=== PATIENT | female | born 1955 | race Caucasian/White ===

== ENCOUNTER 2016-07-16 08:36 | Outpatient (CLI) | payer BC, OTHER | END 2016-07-16 23:59 | disposition home or self-care (01) | DX: E78.2 Mixed hyperlipidemia (principal) ==

== ENCOUNTER 2016-08-20 11:47 | Outpatient (CLI) | payer BC ==
--- NOTE | 2016-08-23 13:36 | Mammography Report ---
DIGITAL SCREENING MAMMOGRAM: 08/20/2016 CLINICAL INDICATION: A 61-year-old for screening. COMPARISON: 07/2014, 07/2013, 07/2011. TECHNIQUE: Routine CC and MLO projections were obtained of the breasts. FINDINGS: The breasts again demonstrate scattered fibroglandular densities bilaterally. Coarse, typ ically benign calcifications are present. No suspicious masses, clustered microcalcifications, or re gions of architectural distortion are identified. IMPRESSION: BENIGN FINDINGS. RECOMMENDATION: Routine annual screening unless otherwise clinically indicated. BIRADS CATEGORY 2 - BENIGN FINDINGS. STANDARD QUALIFYING STATEMENTS 1. This examination was reviewed with the aid of Computer-Aided Detection (CAD). 2. A negative or benign imaging report should not delay biopsy if clinically suspicious findings are present. Consider surgical consultation if warranted. More than 5% of cancers are not identified by i maging. 3. Dense breasts may obscure an underlying neoplasm. JOB #: [id number] EXT JOB #:[id number]
== END 2016-08-20 11:48 | disposition home or self-care (01) ==
LOC: DI 11:47
PROVIDERS: ATTEND Internal Medicine
DX: Z12.31 Encounter for screening mammogram for malignant neoplasm of breast (principal)
CPT/HCPCS: 77067

== ENCOUNTER 2017-08-05 09:24 | Outpatient (CLI) | payer BC ==
[2017-08-05 15:57] LABS: ALBUMIN 4.3 g/dL (3.2-5.5); ALBUMIN/GLOBULIN RATIO 1.4 (1.0-2.2); ALKALINE PHOSPHATASE 58 IU/L (42-121); ALT ALANINE AMINOTRANSFERASE 35 IU/L (10-60); AST ASPARTATE AMINOTRANSFERASE 25 IU/L (10-42); BILIRUBIN,TOTAL 0.8 mg/dL (0.2-1.0); BUN - BLOOD UREA NITROGEN 19 mg/dL (6-20); CALCIUM 9.3 mg/dL (8.5-10.3); CARBON DIOXIDE - CO2 26 mmol/L (21-32); CHLORIDE 102 mmol/L (101-111); CHOL/HDL RATIO 5.4 (<4.4); CHOLESTEROL 272 mg/dL; CREATININE 0.8 mg/dL (0.4-1.0); GFR - MDRD 73 (>89); GLUCOSE 102 mg/dL (70-100); HDL CHOLESTEROL 50 mg/dL; LDL CHOLESTEROL,CALCULATED 177 mg/dL; LDL/HDL RATIO 3.5 (<4.4); SODIUM 136 mmol/L (135-145); TOTAL PROTEIN 7.4 g/dL (6.7-8.2); VLDL CHOLESTEROL 45 mg/dL
== END 2017-08-05 09:25 | disposition home or self-care (01) ==
LOC: LAB.R 09:24
PROVIDERS: ATTEND Internal Medicine
DX: E78.5 Hyperlipidemia, unspecified (principal)
CPT/HCPCS: 80053; 80061; 83721

== ENCOUNTER 2017-09-02 09:06 | Outpatient (CLI) | payer BC ==
--- NOTE | 2017-09-05 18:14 | Mammography Report ---
Procedure Date: 09/02/2017 Accession Number: [id number] / [id number] Procedure: YVONNE - Screening Mammo Dig Bilat CPT Code: FULL RESULT: EXAM: Screening Mammo Dig Bilat DATE: 09/02/2017 9:31 AM CLINICAL HISTORY: Routine screening TECHNIQUE: Bilateral CC and MLO views were obtained. COMPARISON: August 20, 2016, 07/24/2014, 08/15/2013, 08/09/2011 FINDINGS: There are scattered fibroglandular densities. No significant interval change. No suspicious masses, clustered microcalcifications, or regions of architectural distortion are identified. IMPRESSION: Negative. RECOMMENDATION: Routine annual screening unless otherwise clinically indicated. BIRADS CATEGORY 1: Negative STANDARD QUALIFYING STATEMENTS: 1. This examination was reviewed with the aid of Computer-Aided Detection (CAD). 2. A negative or benign imaging report should not delay biopsy if clinically suspicious findings are present. Consider surgical consultation if warrented. More than 5% of cancers are not identified by imaging. 3. Dense breasts may obscure an underlying neoplasm.
== END 2017-09-02 09:07 | disposition home or self-care (01) ==
LOC: DI 09:06
PROVIDERS: ATTEND Internal Medicine
DX: Z12.31 Encounter for screening mammogram for malignant neoplasm of breast (principal)
CPT/HCPCS: 77067

== ENCOUNTER 2018-09-24 00:33 | Emergency (ER) | payer BC ==
[2018-09-24 01:12] LABS: BILIRUBIN,URINE NEGATIVE (NEGATIVE); GLUCOSE, URINE (UA) NEGATIVE (NEGATIVE); KETONES,URINE (UA) NEGATIVE (NEGATIVE); LEUKOCYTE ESTERASE, URINE NEGATIVE (NEGATIVE); NITRITE,URINE NEGATIVE (NEGATIVE); OCCULT BLOOD,URINE NEGATIVE (NEGATIVE); PH,URINE 5.5 PH (5.0-7.5); PROTEIN,URINE TRACE mg/dL (NEGATIVE); UROBILINOGEN,URINE 0.2 (NORMAL) E.U./dL (NORMAL)
[2018-09-24 01:17] LABS: CLARITY,URINE CLEAR (CLEAR)
[2018-09-24 01:42] LABS: BASOPHILS # (AUTO) 0.1 10^3/uL (0.0-0.1); BASOPHILS % (AUTO) 0.6 %; RED CELL DISTRIBUTION WIDTH 12.8 % (12.0-15.0)
[2018-09-24 01:47] LABS: EOSINOPHILS # (AUTO) 0.1 10^3/uL (0.0-0.7); EOSINOPHILS % (AUTO) 0.6 %; HGB - HEMOGLOBIN 15.5 g/dL (12.0-16.0); LYMPHOCYTES # (AUTO) 2.5 10^3/uL (1.5-3.5); LYMPHOCYTES % (AUTO) 19.2 %; MEAN CORPUSCULAR HEMOGLOBIN 29.1 pg (27.0-31.0); MEAN CORPUSCULAR HGB CONC 33.1 g/dL (32.0-36.0); MONOCYTES # (AUTO) 0.7 10^3/uL (0.0-1.0); MONOCYTES % (AUTO) 5.5 %; NEUTROPHILS # (AUTO) 9.7 10^3/uL (1.5-6.6); NEUTROPHILS % (AUTO) 73.8 %; PLT - PLATELET COUNT 179 10^3/uL (130-450); RED BLOOD COUNT 5.32 10^6/uL (4.20-5.40); WHITE BLOOD COUNT 13.2 x10^3/uL (4.8-10.8)
[2018-09-24 01:58] LABS: ALBUMIN 4.7 g/dL (3.2-5.5); ALBUMIN/GLOBULIN RATIO 1.5 (1.0-2.2); BILIRUBIN,TOTAL 0.9 mg/dL (0.2-1.0); CALCIUM 9.9 mg/dL (8.5-10.3); CREATININE 0.9 mg/dL (0.4-1.0); TOTAL PROTEIN 7.9 g/dL (6.7-8.2)
--- NOTE | 2018-09-24 02:34 | ED Physician Documentation ---
PD HPI ABD PAIN - Stated complaint Stated Complaint: AB PX - Chief complaint Chief Complaint: Abd Pain - History obtained from History obtained from: Patient - History of Present Illness Timing - onset: How many days ago (2 days) Timing - duration: Days Timing - details: Gradual onset, Intermittant, Waxing and waning Pain level now: 5 Quality: Pain Location: RUQ, Epigastric Radiation: Other (no radiation) Improved by: Other (nothing) Worsened by: Eating Associated symptoms: Nausea, Vomiting. No: Fever, Diarrhea, Constipation Similar symptoms before: Has not had sx before Recently seen: Not recently seen Review of Systems Constitutional: reports: Reviewed and negative Cardiac: reports: Reviewed and negative Respiratory: reports: Reviewed and negative GI: reports: Abdominal Pain, Nausea, Vomiting. 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 - Present Medications Home Medications: Ambulatory Orders Medication Instructions Recorded Confirmed Ketorolac [Toradol] 10 mg PO Q6H PRN #20 tablet 09/24/18 Ondansetron Odt [Zofran] 4 mg TL Q6H PRN #14 tablet 09/24/18 - Allergies Allergies/Adverse Reactions: Allergies Allergy/AdvReac Type Severity Reaction Status Date / Time pentazocine lactate * Allergy Intermediate Loss of Verified 09/24/18 00:41 [From Talwin] muscle control/Nausea Sulfa (Sulfonamide Allergy Mild Hives Verified 09/24/18 00:41 Antibiotics) - Social History Does the pt smoke?: No Smoking Status: Never smoker Does the pt drink ETOH?: No Does the pt have substance abuse?: No - Immunizations Immunizations are current?: Yes - POLST Patient has POLST: No PD ED PE NORMAL - Vitals Vital signs reviewed: Yes - General General: Alert and oriented X 3, No acute distress, Well developed/nourished - HEENT HEENT: Moist mucous membranes - Neck Neck: Supple, no meningeal sign - Cardiac Cardiac: RRR, No murmur, No gallop, No rub - Respiratory Respiratory: No respiratory distress, Clear bilaterally - Abdomen Abdomen: Soft, Non distended, Other (mild tenderness to palpation RUQ and epigastrium without rebound or guarding) - Back Back: No CVA TTP - Derm Derm: Normal color, Warm and dry, No rash - Extremities Extremities: No edema Results - Vitals Vitals: Vital Signs - 24 hr 09/24/18 09/24/18 09/24/18 02:41 02:55 03:15 Temperature Heart Rate 82 64 76 Respiratory 18 16 14 Rate Blood Pressure 188/89 H 184/86 H 176/85 H O2 Saturation 97 98 97 09/24/18 05:22 Temperature 36.5 C Heart Rate 69 Respiratory 14 Rate Blood Pressure 157/86 H O2 Saturation 97 Oxygen O2 Source Room air - Labs Labs: Laboratory Tests 09/24/18 09/24/18 09/24/18 01:10 01:35 01:35 WBC 13.2 H RBC 5.32 Hgb 15.5 Hct 46.8 MCV 88.0 MCH 29.1 MCHC 33.1 RDW 12.8 Plt Count 179 Neut # (Auto) 9.7 H Lymph # (Auto) 2.5 [place] # (Auto) 0.7 Eos # (Auto) 0.1 Baso # (Auto) 0.1 Absolute Nucleated RBC 0.00 Nucleated RBC % 0.0 Sodium 135 Potassium 3.9 Chloride 100 L Carbon Dioxide 24 Anion Gap 11.0 BUN 18 Creatinine 0.9 Estimated GFR (MDRD) 63 L Glucose 127 H Calcium 9.9 Total Bilirubin 0.9 AST 19 ALT 25 Alkaline Phosphatase 68 Total Protein 7.9 Albumin 4.7 Globulin 3.2 Albumin/Globulin Ratio 1.5 Lipase 43 Urine Color YELLOW Urine Clarity CLEAR Urine pH 5.5 Ur Specific [place] >=1.030 H Urine Protein TRACE Urine Glucose (UA) NEGATIVE Urine Ketones NEGATIVE Urine Occult Blood NEGATIVE Urine Nitrite NEGATIVE Urine Bilirubin NEGATIVE Urine Urobilinogen 0.2 (NORMAL) Ur Leukocyte Esterase NEGATIVE Ur Microscopic Review NOT INDICATED Urine Culture Comments NOT INDICATED - Rads (name of study) CT A/P Radiology: Prelim report reviewed, See rad report PD MEDICAL DECISION MAKING - ED course Complexity details: reviewed results, re-evaluated patient, considered differential, d/w patient Departure - Departure Disposition: 01 Home, Self Care Clinical Impression: Pancreatitis Condition: Good Health Concerns: abdominal pain Plan of Treatment: analgesic as prescribed, return if worse, follow up as scheduled with GI this week Care Goals: symptom control Assessment: see diagnosis Instructions: ED Abdominal Pain Unkn Cause Follow-Up: Ag Ellsworth MD [Primary Care Provider] - Prescriptions: Ketorolac [Toradol] 10 mg PO Q6H PRN #20 tablet PRN Reason: Pain Ondansetron Odt [Zofran] 4 mg TL Q6H PRN #14 tablet PRN Reason: Nausea / Vomiting Discharge Date/Time: 09/24/18 05:30
[2018-09-24] MEDS ORDERED: SODIUM CHLORIDE 0.9% 1,000 ML IV STA (02:47)
[2018-09-24] MEDS ORDERED: ONDANSETRON 4 MG/2 ML VIAL IVP STA (02:47)
[2018-09-24] MEDS ORDERED: KETOROLAC 15 MG/ML VIAL IVP STA ×2 (02:47→04:49)
[2018-09-24] MEDS ORDERED: IOVERSOL 320 100 ML VIAL IVP ONE ×2 (03:31→03:56)
--- NOTE | 2018-09-24 04:12 | CT Report ---
Reason: abd. pain Procedure Date: 09/24/2018 Accession Number: [id number] / [id number] Procedure: CT - Abdomen/Pelvis W CPT Code: FULL RESULT: EXAM: CT ABDOMEN AND PELVIS EXAM DATE: 09/24/2018 03:53 AM. CLINICAL HISTORY: Abdominal pain. COMPARISONS: ABDOMEN/PELVIS W/ 11/17/2013 12:43 PM. TECHNIQUE: Routine helical CT imaging was performed through the abdomen and pelvis. IV contrast: Yes . Enteric contrast: No . Reconstructions: Coronal and sagittal. In accordance with CT protocol optimization, one or more of the following dose reduction techniques were utilized for this exam: automated exposure control, adjustment of mA and/or KV based on patient size, or use of iterative reconstructive technique. FINDINGS: Lung Bases: Unremarkable. Liver: Fatty. No suspicious masses. Gallbladder/Bile Ducts: Unremarkable post cholecystectomy. Spleen: Unremarkable. Pancreas: Mild pancreatic head edema. No mass or ductal dilatation. No peripancreatic collection. Adrenal Glands: Unremarkable. Kidneys: Unremarkable. No suspicious masses or hydronephrosis. Peritoneal Cavity/Bowel: No bowel obstruction or inflammatory process seen. No free air or significant free fluid. Incidental tiny duodenal lipoma. No worrisome masses or adenopathy. The appendix is normal. No excessive stool burden. Colonic diverticulosis. Pelvic Organs: Bladder, uterus, and adnexa are unremarkable. Vasculature: No aneurysms or other significant abnormality. Bones: No significant abnormality. Other: None. IMPRESSION: 1. Very mild pancreatitis without apparent complication. 2. Quite fatty liver. 3. Colonic diverticulosis. 4. Post cholecystectomy. RADIA
[2018-09-24 05:23] VITALS: BP 157/86
== END 2018-09-24 05:30 | disposition home or self-care (01) ==
LOC: ED 00:33
DX: K85.90 Acute pancreatitis without necrosis or infection, unspecified (principal); I10 Essential (primary) hypertension; E78.00 Pure hypercholesterolemia, unspecified
CPT/HCPCS: 36415; 74177; 80053; 81003; 83690; 85025; 96361; 96374; 96375; 96376; 99283; 99285; Q9967; 81001; 87086

== ENCOUNTER 2019-03-05 13:27 | Outpatient (CLI) | payer BC ==
--- NOTE | 2019-03-05 14:33 | Mammography Report ---
Reason: RT BREAST LUMP Procedure Date: 03/05/2019 Accession Number: [id number] / [id number] Procedure: YVONNE - Diagnostic Dig Bilat CPT Code: Final Report FULL RESULT: EXAM: Diagnostic Dig Bilat, Breast Unilateral Limited DATE: 03/05/2019 2:04 PM CLINICAL HISTORY: Right upper outer quadrant to the palpable lump. COMPARISON: 09/02/2017, 08/20/2016, 07/24/2014, 08/15/2013 MAMMOGRAM: TECHNIQUE: (B) - Bilateral CC and MLO views were obtained. PARENCHYMAL PATTERN: (A) - The breasts demonstrate scattered fibroglandular densities bilaterally. FINDINGS: No mammographic abnormality is seen in the area of the clinical finding 2:00 position right breast. There are no suspicious masses, calcifications, or areas of distortion in either breast. RIGHT BREAST ULTRASOUND: TECHNIQUE: Real time scanning by the customer facilities supervisor with saved static images reviewed. FINDINGS: The right upper inner quadrant is scanned. There is no cystic or solid mass or abnormal fluid collection. The palpable finding represents breast tissue superimposed on a rib. IMPRESSION: Negative examination. BI-RADS category 1. RECOMMENDATION: (ANNUAL) - Recommend routine annual screening mammography. BI-RADS CATEGORY: (1) - Negative. STANDARD QUALIFYING STATEMENTS: 1. This examination was not reviewed with the aid of Computer-Aided Detection (CAD). 2. A negative or benign imaging report should not preclude biopsy if clinically suspicious findings are present. 3. Dense breasts may obscure an underlying neoplasm. 4. This examination was reviewed with the aid of 3D breast imaging (tomosynthesis).
== END 2019-03-05 13:28 | disposition home or self-care (01) ==
LOC: DI 13:27
PROVIDERS: ATTEND Family Medicine
DX: N63.15 Unspecified lump in the right breast, overlapping quadrants (principal); Z80.3 Family history of malignant neoplasm of breast
CPT/HCPCS: 76642; 77066

== ENCOUNTER 2019-05-17 07:20 | Outpatient (CLI) | payer BC ==
[2019-05-17] MEDS ORDERED: GADOBUTROL 7.5 MMOL/7.5 ML VIAL ONE (07:28)
[2019-05-17] MEDS ORDERED: GADOBUTROL 7.5 MMOL/7.5 ML VIAL IVP ONE (08:00)
--- NOTE | 2019-05-21 17:06 | MRI Report ---
Reason: BREAST LUMP Procedure Date: 05/17/2019 Accession Number: [id number] / [id number] Procedure: MRI - Breast W/WO Cont CPT Code: 00969 Final Report FULL RESULT: EXAM: Breast W/WO Cont DATE: 05/17/2019 8:25 AM CLINICAL HISTORY: BREAST LUMP palpable right breast lump with negative sonographic and mammographic workup but persistent clinical concern. COMPARISON: None. TECHNIQUE: Multiphase isotropic postcontrast sequential high resolution imaging, steady-state free precession. Nonfat saturated T1 imaging, STIR imaging, diffusion weighted imaging. CONTRAST USED: 7.5 mL Gadavist. POSTPROCESSING: Subtraction dynamic/curve analysis and multiplanar reformations with CAD stream FINDINGS: The breasts demonstrate a scattered amount of fibroglandular tissue bilaterally. Both breasts demonstrate minimal background parenchymal enhancement. Chest: Thoracic structures are grossly unremarkable including visualized mediastinum and lungs. Right breast: There is no suspicious focus of enhancement. There is no suspicious mass. There is no lymphadenopathy by size or morphology criteria. There is no suspicious nonmass enhancement. Left breast: There is no suspicious focus of enhancement. There is no suspicious mass. There is no lymphadenopathy by size or morphology criteria. There is no suspicious nonmass enhancement. IMPRESSION: Negative examination. BI-RADS 1. Recommendation: Continued annual screening mammography and clinical correlation. COMMENT: The literature indicates that a negative dynamic breast MRI has a high sensitivity and specificity for the detection of invasive carcinoma (to a threshold of 5 mm). MRI is not reliably sensitive for detecting ductal carcinoma in situ or large invasive neoplasms with only minimal enhancement (i.e. mucinous carcinoma). Normal-appearing lymph nodes on MRI may contain microscopic tumor. Appropriate clinical mammographic and sonographic followup should be performed if recommended. Negative MRI should not dissuade further evaluation of any suspicious mammographic calcifications and/or worrisome palpable masses.
== END 2019-05-17 07:21 | disposition home or self-care (01) ==
LOC: DI 07:20
PROVIDERS: ATTEND Surgery
DX: N63.10 Unspecified lump in the right breast, unspecified quadrant (principal)
CPT/HCPCS: 77049; A9585

== ENCOUNTER 2019-06-05 13:23 | Outpatient (CLI) | payer BC ==
--- NOTE | 2019-06-05 16:44 | SLEEP CARE CONSULTATION ---
Information from patient questionnaire entered by Laly Anaya. I have reviewed and concur with the information entered by Laly Anaya. This document represents the service I personally performed and the decisions made by me, Karyna Carney MD, [facility]. History of Present Illness Reason for Visit: New patient Chief Complaint: reports: Insomnia, Unrefreshed sleep, Snoring, Observed pauses in breathing, Frequent awakenings at night Duration of Symptoms: years with snoring and insomnia Usual bedtime: 11pm-12am Time it takes to fall asleep: 30 minutes Snores at night: Yes Observed to quit breathing while asleep: Yes Sleeps alone due to snoring: No Number of times waking at night: 2-3 Reasons for waking at night: reports: Snoring, Pain, Bathroom Toss, Turn, or Twitch while sleeping: Yes Recalls having dreams: Yes (sometimes) Usually gets out of bed at: 7:45am Feels refreshed in the morning: No Morning headache: No Sleepy or fatigued during the day: Yes (after 3pm) Ever fallen asleep while driving: No Takes day naps: Yes (rarely) Dreams during day naps: No Prior sleep studies: Yes Additional HPI information: I had the pleasure of seeing Ms. Estrada today regarding the possibility of her having a sleep disorder. As you know, she is a 64 year old lady who complains of insomnia, sleep study, observed apneas, unrefreshed sleep, unrefreshed sleep, persistent fatigue, and excessive daytime sleepiness. The patient tells me that she normally goes to bed around midnight, and it takes her approximately 30 minutes to fall asleep. She has been told that she snores loudly and irregularly at night. She has also been observed to stop breathing in her sleep. Her bed partner can still sleep in the same bed. He has obstructive sleep apnea-hypopnea and uses a CPAP. She can recall waking up on the average of 2 - 3 times during the night. Most of the time she wakes up because of having to use the bathroom. She has awakened occasionally because of her own snoring, choking, and having to gasp for air. There is not a lot of tossing and turning in her sleep. She has somniloquy (sleep talking) but not somnambulism (sleep walking). Generally she can recall having dreams. In the morning she usually gets up out of the bed around 7:45 a.m. not feeling refreshed nor rested. She occasionally has a morning headache. During the day she complains of feeling sleepy and fatigued. Her score on Barnes Sleepiness Scale is 12 out of 24. She has never fallen asleep while driving nor has had any accident due to sleepiness. She usually does not take naps during the day. She reports having impaired concentration during the day. - Parasomnia Symptoms Ever been unable to move upon waking from sleep: Yes Ever felt weak in the knees when startled or emotional: Yes Bothered by creepy, crawly, restless sensations in legs: No Problems with memory or concentration: Yes (sometimes) Subjective Initial Barnes Sleepiness Scale score: 12 Past Medical History Past Medical History: reports: Claustrophobia (a bit), Arthritis Social History The patient's occupation is a [employer]. - [employer]. Patient is Single and lives in [place]. Have you smoked in the past 12 months: No Years of smokin Quit date: 1982 Alcohol use: No Alcohol amount and frequency: use to a little Caffeine use: Yes Caffeine amount and frequency: 2-3 cups a day Family History Family history of sleep disordered breathing: Yes Family Hx Sleep Apnea: Sibling: Sleep apnea - Treated Allergies and Home Medications Drug allergies reviewed: Yes (Talwin & Sulfa) Home medication list reviewed: Yes (acetaminophen, ibuprofen, Multivitamin once a day, turmeric capsule) Review of Systems Weight gain over past 5 years: 30 Weight loss over past 5 years: 30 Cardiovascular: reports: high blood pressure (with stress once in a while) Respiratory: denies: shortness of breath, wheeze, sputum production, chronic cough, other Gastrointestinal: reports: heartburn, nausea, diarrhea, abdominal pain Urinary: reports: frequency Neurological: reports: headaches Psychiatric: reports: claustrophobia (small amount) Ear/Nose/Throat: reports: wisdom teeth removed Endocrine: reports: too hot or cold Musculoskeletal: reports: joint pain, neck pain, back pain, joint swelling, muscle pain or cramping, other Immunologic: denies: sneezing, rash, itching, allergies to food or environment, other Physical Exam Vital signs obtained and entered by: Physical exam is deferred due to the COVID- 19 pandemic. Height: 5 ft 3 in Impression and Plan IMPRESSION: 1. Obstructive Sleep Apnea-Hypopnea Syndrome, as suggested by history of loud and irregular snoring, observed cessation of breath while asleep, frequent awakenings, nocturnal choking, unrefreshed sleep, occasional morning headache, cognitive impairment, and daytime hypersomnolence. Narrow oropharynx and obesity are common predisposing factors for obstructive sleep apnea-hypopnea syndrome. Pathophysiology of sleep-disordered breathing was discussed. I recommend proceeding to polysomnography to confirm the diagnosis and to assess severity. If she has significant sleep disordered breathing, a manual CPAP titration study will also be performed to find the optimal treatment pressure. I informed the patient of what the sleep studies involve and after some discussion, she agreed to proceed. Plan: 1. Schedule an in-laboratory polysomnography or a home sleep apnea test (HSAT). 2. Avoid long distance driving or when feeling sleepy. 3. Avoid alcohol, sedative and muscle relaxant around bedtime. 4. Attempt to lose weight. 5. Return in 1 to 2 weeks after the study to discuss results and initiate therapy. I spent 100% of this visit face to face with the patient with greater than 50% of this was spent time counseling the patient and coordination of care.
== END 2019-06-05 13:24 | disposition home or self-care (01) ==
LOC: SC 13:23
PROVIDERS: ATTEND Internal Medicine Pulmonary Disease
DX: G47.10 Hypersomnia, unspecified (principal); R06.81 Apnea, not elsewhere classified; G47.8 Other sleep disorders; R06.83 Snoring; R51 Headache; R41.89 Other symptoms and signs involving cognitive functions and awareness
CPT/HCPCS: 99203; 99212

== ENCOUNTER 2019-06-20 19:30 | Outpatient (CLI) | payer BC | END 2019-06-20 23:59 | disposition home or self-care (01) | LOC: SC 19:30 | PROVIDERS: ATTEND Internal Medicine Pulmonary Disease | DX: G47.33 Obstructive sleep apnea (adult) (pediatric) (principal); E66.3 Overweight | CPT/HCPCS: 95806 ==

== ENCOUNTER 2019-07-05 10:24 | Outpatient (CLI) | payer BC ==
[2019-07-05 10:46] LABS: BILIRUBIN,URINE NEGATIVE (NEGATIVE); GLUCOSE, URINE (UA) NEGATIVE (NEGATIVE); KETONES,URINE (UA) NEGATIVE (NEGATIVE); LEUKOCYTE ESTERASE, URINE NEGATIVE (NEGATIVE); NITRITE,URINE NEGATIVE (NEGATIVE); OCCULT BLOOD,URINE NEGATIVE (NEGATIVE); PH,URINE 5.5 PH (5.0-7.5); PROTEIN,URINE NEGATIVE (NEGATIVE); UROBILINOGEN,URINE 0.2 (NORMAL) E.U./dL (NORMAL)
[2019-07-05 11:03] LABS: CLARITY,URINE CLEAR (CLEAR)
[2019-07-05 11:14] LABS: BACTERIA,URINE Rare /HPF (None Seen); RBC,URINE 0-5 /HPF (0-5); SQUAMOUS EPITHELIAL CELL,UR RARE Squamous (<= Few)
== END 2019-07-05 10:25 | disposition home or self-care (01) ==
LOC: LAB 10:24
PROVIDERS: ATTEND Registered Nurse
DX: R10.9 Unspecified abdominal pain (principal)
CPT/HCPCS: 81001; 87086

== ENCOUNTER 2019-07-10 16:57 | Outpatient (CLI) | payer BC ==
--- NOTE | 2019-07-10 10:31 | SLEEP CARE CONSULTATION ---
Information from patient questionnaire entered by Linda Perkins. I have reviewed and concur with the information entered by Linda Perkins. This document represents the service I personally performed and the decisions made by me, Karyna Carney MD, [facility]. History of Present Illness Service Date and Time: 07/10/2019 1000 Initial Friendly Sleepiness Scale score: 12 Additional HPI information: To minimize the risk of COVID-19 exposure, the patient has requested and consented to this video telemedicine visit. The patient also agrees to having her insurance billed. HPI: Ms. Estrada was called for follow up of the sleep study she had on 06/20/2019. The polysomnography showed that moderate obstructive sleep apnea- hypopnea with an AHI of 21.0 and [place] oxygen saturation of 77%. The respiratory events occurred almost exclusively during supine sleep. The patient was informed of these findings. I explained to her the pathophysiology behind obstructive sleep apnea. We then spent quite a bit of time discussing different treatment options. For mild obstructive sleep apnea, surgery and oral appliance are alternatives to nasal CPAP therapy but in moderate or severe cases, nasal CPAP is the most effective and reliable treatment. After some discussion, she opted to go with the nasal CPAP therapy. I explained to her how CPAP machine works and what to expect when using the machine. She is encouraged to use CPAP every night especially in the first 2 to 3 nights in order to get used to it. She should call me or her CPAP supplier to discuss any mechanical problem that may occur. If she snores while wearing the CPAP or feels like she needs more air from the machine, she should notify me and I will increase the pressure. Allergies and Home Medications Drug allergies reviewed: Yes Home medication list reviewed: Yes Review of Systems Review of systems same as previous: Yes Physical Exam Height: 5 ft 3 in Impression and Plan IMPRESSION: 1. Obstructive Sleep Apnea-Hypopnea Syndrome, moderate, associated with moderate hypoxemia. Most likely, this is the cause of the patients symptoms of unrefreshed sleep, and excessive daytime sleepiness. The patient also recently had a transient ischemic attack which makes the treatment more necessary. As mentioned above, the patient will be started on autoCPAP set at 4 - 12 cmH2O. Depending on her response and compliance she may be brought back for an overnight CPAP titration study (No sleep studies are being conducted at this time because of COVID-19). PLAN: 1. Prescription made for an autoCPAP with heated humidifier and related supplies. 2. Attempt to lose weight. 3. Be careful when driving until her sleepiness resolves completely on nasal CPAP therapy. 4. Return in one month for follow up. I will assess her response and compliance at that time. Visit Type: Telehealth Video Video Type: Panono Patient Location: Home Location of Provider: Home Patient agrees and consents to this telehealth visit type: Yes Time Spent with Patient (minutes): 15 Provider Statement: I spent 100% of the Telehealth Video Call with the patient with greater than 50% spent counseling the patient and coordination of care.
== END 2019-07-10 16:58 | disposition home or self-care (01) ==
LOC: SC 16:57
PROVIDERS: ATTEND Internal Medicine Pulmonary Disease
DX: G47.33 Obstructive sleep apnea (adult) (pediatric) (principal)

== ENCOUNTER 2019-09-27 11:05 | Outpatient (CLI) | payer BC ==
[2019-09-27 12:22] VITALS: BP 140/80
--- NOTE | 2019-09-27 12:22 | SLEEP CARE CONSULTATION ---
Information from patient questionnaire entered by Linda Perkins. I have reviewed and concur with the information entered by Linda Perkins. This document represents the service I personally performed and the decisions made by me, Mckenzie Espinosa, RN, MSN, DIE OPERATOR. History of Present Illness Service Date and Time: 09/27/2019 1105 Previous diagnosis: Moderate, Obstructive Sleep Apnea-Hypopnea Syndrome AHI: 21 Reason for follow up: first compliance Equipment type: CPAP Equipment obtained from: [employer] (getting supplies as needed - not happy with mask , others sent but still not fitting.) Mask style: Full face (both resmed F30 and Dreamwear plus Wisp- no chinstrap) Backup mask available: Yes Last cushion change: 3 days ago - no difference [facility] Type of Sleep Study: Home sleep study CPAP Compliance Data - Data Reviewed with Patient Average duration of nightly device use: 6h 21m Compliance rate %: 90 Current pressure setting (cmH2O): 4-12 Humidity settin Heated hose settin Average residual AHI: 7 (90% pressure 7.9cmH20 ) Central apnea: 0.7 Obstructive apnea: 1.2 Hypopnea: 5.1 Average large leak: 40m 6s Subjective Patient concerns: reports: mask discomfort (from overtightening mask), air blowing in eyes, mask leak noise (mask farts), condensation in mask/hose (occasional in mask - air feels too cold), dry mouth, nose, throat (severe with wisp mask / mild most nights. ), other (having mask leaks with all styles of masks given. She reports she has a small skull and current headgears too large. Cushion also too large and slides around even with adjustment. ). denies: aerophagia, epistaxis Observed to snore while using device: Yes Current pressure setting perceived as: comfortable On therapy, patient: denies: sleeping better, awakening more refreshed, being mo re awake and alert during the day, more rested overall (no change is sleepiness symptoms as wakes to mask frequently during the night), drowsiness while driving Initial [place] Sleepiness Scale score: 12 Current [place] Sleepiness Scale score: 5 Allergies and Home Medications Known drug allergies: Yes (see list ) Home medication list reviewed: No (see ROS additions) Review of Systems Review of systems same as previous: No (TIA 06/14/19 Plavix 1 month, started amlidipine, rovastatin) Physical Exam Blood Pressure: 140/80 (monitors at home - guidelines by PCP for follow up on higher readings) Cuff size: long Heart Rate: 70 O2 Saturation: 98 Height: 5 ft 3 in Weight: 176 lb 9.6 oz Body Mass Index: 31.2 BMI Classification: Obese Impression and Plan 1. Obstructive Sleep Apnea-Hypopnea Syndrome,moderate , with good treatment compliance and good apnea control. On CPAP therapy, the patient has not noted any change as she is waking to mask leaks frequently during the night. She brought in her masks to show her concerns with each mask. A mask refitting was ordered to find a smaller mask headgear and cushion that comfortably fits so to reduce mask leaks into patient eyes. Until then, she is advised to use an eye cover to protect eyes. She can also use eye lubricating drops prior to CPAP use until leaks resolved. I also advised a folder wash cloth under mask at top of head to help fit better as mask body seems too large and cannot be adjusted. Oral dryness can be reduced by adjusting humidity setting higher or heated hose lower or by adjusting both settings.In her case, she is advised to increase heated hose due to coolness of air and condensation and adjust further as needed both settings as discussed. Oral dryness can also be reduced by reducing mask leaks. Patient advised that chronic oral dryness can affect dental health and advised to follow up with dentist. In addition, there are oral dryness products that can be used to reduce dryness. Patient to discuss best option with dentist.The patients pressure will be changed to autoCPAP 8-14 cmH20 For elevation of residual AHI. Patient advised how to use the ramp feature to reduce pressure at initiation of treatment. She is to contact me if pressure change is uncomfortable so that it can be adjusted. Goals for apnea control discussed. Patient's apnea severity and rationale for treatment to reduce apnea, improve sleep quality and reduce cardiovascular and cerebrovascular events was reviewed. I also reviewed the benefit of consistent device use of CPAP for hypertension, cerebrovascular disease. * * Change auto CPAP pressure to 8-14 cmH2O * Mask refitting. * Implement methods to reduce condensation and oral dryness * Notify me if snoring with mask or feeling that the pressure is too much or too little * Attempt to lose weight * Call this office if any problems using CPAP * Return for follow up in 1-2 months , or sooner if concerns arise Visit Type: In Office Time Spent with Patient (minutes): 42 Provider Statement: I spent 100% of the Face to Face Visit with the patient with greater than 50% spent counseling the patient and coordination of care.
== END 2019-09-27 11:06 | disposition home or self-care (01) ==
LOC: SC 11:05
PROVIDERS: ATTEND Nurse Practitioner Family
DX: G47.33 Obstructive sleep apnea (adult) (pediatric) (principal); E66.9 Obesity, unspecified; Z68.31 Body mass index [BMI] 31.0-31.9, adult
CPT/HCPCS: 99212; 99215

== ENCOUNTER 2019-11-15 09:50 | Day surgery (SDC) | payer BC ==
[2019-11-15] MEDS ORDERED: LACTATED RINGERS 1,000 ML IV ONE ×2 (09:54→11:56)
[2019-11-15] MEDS ORDERED: fentaNYL 250 MCG/5 ML VIAL IVP ONE (11:19)
[2019-11-15] MEDS ORDERED: MIDAZOLAM 2 MG/2 ML VIAL IVP ONE (11:19)
[2019-11-15 12:24] VITALS: BP 136/74
== END 2019-11-15 09:51 | disposition home or self-care (01) ==
LOC: SDS 09:50
PROVIDERS: ATTEND Surgery
PROC: 0DBK8ZZ Excision of Ascending Colon, Via Natural or Artificial Opening Endoscopic (ICD-10-PCS; principal; 2019-11-15 11:00)
DX: Z12.11 Encounter for screening for malignant neoplasm of colon (principal); D12.2 Benign neoplasm of ascending colon; K64.8 Other hemorrhoids; K57.30 Diverticulosis of large intestine without perforation or abscess without bleeding; I10 Essential (primary) hypertension; G47.30 Sleep apnea, unspecified; Z79.899 Other long term (current) drug therapy; Z79.82 Long term (current) use of aspirin; Z87.891 Personal history of nicotine dependence; Z86.73 Personal history of transient ischemic attack (TIA), and cerebral infarction without residual deficits
CPT/HCPCS: 45385; J3010; J7120

== ENCOUNTER 2020-01-11 08:20 | Outpatient (CLI) | payer BC ==
[2020-01-11 15:44] LABS: BASOPHILS # (AUTO) 0.1 10^3/uL (0.0-0.1); BASOPHILS % (AUTO) 1.5 %; EOSINOPHILS # (AUTO) 0.3 10^3/uL (0.0-0.7); EOSINOPHILS % (AUTO) 3.7 %; HGB - HEMOGLOBIN 14.2 g/dL (12.0-16.0); LYMPHOCYTES # (AUTO) 2.5 10^3/uL (1.5-3.5); MEAN CORPUSCULAR HEMOGLOBIN 29.6 pg (27.0-31.0); MEAN CORPUSCULAR HGB CONC 32.2 g/dL (32.0-36.0); MEAN CORPUSCULAR VOLUME 92.1 fL (81.0-99.0); MEAN PLATELET VOLUME 13.8 fL (7.9-10.8); MONOCYTES # (AUTO) 0.5 10^3/uL (0.0-1.0); MONOCYTES % (AUTO) 7.6 %; NEUTROPHILS # (AUTO) 3.3 10^3/uL (1.5-6.6); NEUTROPHILS % (AUTO) 48.9 %; PLT - PLATELET COUNT 181 10^3/uL (130-450); RED BLOOD COUNT 4.79 10^6/uL (4.20-5.40); RED CELL DISTRIBUTION WIDTH 12.5 % (12.0-15.0); WHITE BLOOD COUNT 6.7 x10^3/uL (4.8-10.8)
[2020-01-11 16:01] LABS: ALBUMIN 4.3 g/dL (3.2-5.5); ALBUMIN/GLOBULIN RATIO 1.6 (1.0-2.2); ALKALINE PHOSPHATASE 55 IU/L (42-121); ALT ALANINE AMINOTRANSFERASE 17 IU/L (10-60); AST ASPARTATE AMINOTRANSFERASE 16 IU/L (10-42); BILIRUBIN,TOTAL 0.7 mg/dL (0.2-1.0); BUN - BLOOD UREA NITROGEN 16 mg/dL (6-20); CARBON DIOXIDE - CO2 27 mmol/L (21-32); CHLORIDE 106 mmol/L (101-111); CHOL/HDL RATIO 2.7 (<4.4); CHOLESTEROL 164 mg/dL; CREATININE 0.7 mg/dL (0.4-1.0); GLUCOSE 105 mg/dL (70-100); HDL CHOLESTEROL 61 mg/dL; LDL CHOLESTEROL,CALCULATED 89 mg/dL; LDL/HDL RATIO 1.5 (<4.4); SODIUM 139 mmol/L (135-145); VLDL CHOLESTEROL 14 mg/dL
== END 2020-01-11 08:21 | disposition home or self-care (01) ==
LOC: LAB.S 08:20
PROVIDERS: ATTEND Family Medicine
DX: E78.5 Hyperlipidemia, unspecified (principal); I10 Essential (primary) hypertension; G45.9 Transient cerebral ischemic attack, unspecified; G47.30 Sleep apnea, unspecified
CPT/HCPCS: 36415; 80053; 80061; 83721; 84443; 85025

== ENCOUNTER 2020-01-22 08:00 | Outpatient (CLI) | payer BC | END 2020-01-22 23:59 | disposition home or self-care (01) | LOC: LAB.R 08:00 | PROVIDERS: ATTEND Registered Nurse | DX: R53.83 Other fatigue (principal); Z20.828 Contact with and (suspected) exposure to other viral communicable diseases; I10 Essential (primary) hypertension; G45.9 Transient cerebral ischemic attack, unspecified; G47.30 Sleep apnea, unspecified; R23.8 Other skin changes | CPT/HCPCS: 36415; 85379; 85610; 87275; 87276 ==

== ENCOUNTER 2020-01-22 13:53 | Outpatient (CLI) | payer BC ==
[2020-01-22 20:06] LABS: PT - PROTHROMBIN TIME 11.6 secs (9.9-12.6)
== END 2020-01-22 13:54 | disposition home or self-care (01) ==
LOC: LAB.S 13:53
PROVIDERS: ATTEND Registered Nurse
DX: R53.83 Other fatigue (principal); R23.8 Other skin changes; I10 Essential (primary) hypertension; G45.9 Transient cerebral ischemic attack, unspecified; G47.30 Sleep apnea, unspecified
CPT/HCPCS: 36415; 85379; 85610; 87275; 87276

== ENCOUNTER 2020-02-25 12:08 | Outpatient (CLI) | payer BC ==
--- NOTE | 2020-02-25 12:38 | SLEEP CARE CONSULTATION ---
Information from patient questionnaire entered by Laly Anaya. I have reviewed and concur with the information entered by Laly Anaya. This document represents the service I personally performed and the decisions made by me, Karyna Carney MD, [facility]. History of Present Illness Service Date and Time: 02/25/2020 1208 Previous diagnosis: Moderate, Obstructive Sleep Apnea-Hypopnea Syndrome AHI: 21 (in 2019) Reason for follow up: three month (with pressure change) Equipment type: CPAP Equipment obtained from: [employer] Mask style: Nasal Prior sleep studies: Yes Year and Where: 2019 - [facility] Type of Sleep Study: Polysomnography HPI additional information: HPI: Ms. Mcmanus returned today for annual follow up of nasal CPAP therapy. She was diagnosed to have moderate obstructive sleep apnea-hypopnea syndrome. The patient gets her supplies from [employer]. She wears a nasal mask. She continues to use the device nightly and all through the night. The compliance report shows usage in 29 nights out of the past 30 nights, averaging 7 hours a night. The > 4 hour compliance rate for the past 365 days is 80%. She complained of aerophagia. She thinks that the pressure of 8 - 10 cmH2O is still a little too high and has to occasionally ramp it (lowered from 8 15 cmH2O in November). On the CPAP therapy she notices improvement in her sleep quality, and that she wakes up feeling fresher in the morning and more awake/alert during the day. Her notices no snore at all. The average residual AHI is 4.1: and average time in large leak per day is 2 minutes. CPAP Compliance Data - Data Reviewed with Patient Average duration of nightly device use: 7 hr Compliance rate %: 86.7 (90 days) Current pressure setting (cmH2O): 8-10 Humidity settin Heated hose settin Average residual AHI: 4.5 Average large leak: 3 min 6 sec Subjective Initial [place] Sleepiness Scale score: 12 (in 2019) Allergies and Home Medications Drug allergies reviewed: Yes Home medication list reviewed: Yes Review of Systems Review of systems same as previous: Yes Physical Exam Height: 5 ft 2 in Impression and Plan IMPRESSION: 1. Obstructive Sleep Apnea-Hypopnea Syndrome, moderate, with the patient continuing to do well on nasal CPAP therapy. She has excellent compliance and significant clinical improvement. The current pressure appears effective but still not too comfortable. Overall, she is very satisfied with treatment and plans to continue with it long-term. I will lower the pressure range further and recheck the residual AHI in one month. PLAN: 1. autoCPAP lowered to 5 - 8 cm H2O via the modem. 2. Return in one month for follow up. Visit Type: Telehealth Video Video Type: Doximity Patient Location: Home Location of Provider: Office Patient agrees and consents to this telehealth visit type: Yes Patient agrees to have their insurance billed: Yes Time Spent with Patient (minutes): 12 Provider Statement: I spent 100% of the Telehealth Video Call with the patient with greater than 50% spent counseling the patient and coordination of care.
== END 2020-02-25 12:09 | disposition home or self-care (01) ==
LOC: SC 12:08
PROVIDERS: ATTEND Internal Medicine Pulmonary Disease
DX: G47.33 Obstructive sleep apnea (adult) (pediatric) (principal)

== ENCOUNTER 2020-03-24 11:34 | Outpatient (CLI) | payer BC ==
--- NOTE | 2020-03-24 11:42 | SLEEP CARE CONSULTATION ---
Information from patient questionnaire entered by Laly Anaya. I have reviewed and concur with the information entered by Laly Anaya. This document represents the service I personally performed and the decisions made by me, Karyna Carney MD, [facility]. History of Present Illness Service Date and Time: 03/24/2020 1134 Previous diagnosis: Moderate, Obstructive Sleep Apnea-Hypopnea Syndrome AHI: 21 (in 2019) Reason for follow up: one month (with pressure change) Equipment type: CPAP Equipment obtained from: [employer] Mask style: Nasal Prior sleep studies: Yes Year and Where: 2019 - [facility] Type of Sleep Study: Polysomnography HPI additional information: To minimize the risk of COVID-19 exposure, the patient has requested and consented to this telephone visit. The patient also agrees to having her insurance billed. HPI: Ms. Mcmanus was called today for follow up of nasal CPAP therapy after the pressure setting was lowered last month for comfort. She was diagnosed to have moderate obstructive sleep apnea-hypopnea syndrome. The patient gets her supplies from [employer]. She wears a nasal mask. She continues to use the device nightly and all through the night. The compliance report shows usage in 29 nights out of the past 30 nights, averaging 8.3 hours a night. The > 4 hour compliance rate for the past 30 days is 96.7%. She complained of aerophagia. She thinks that the pressure of 5 - 8 cmH2O is comfortable (lowered from 8 15 cmH2O in November). On the CPAP therapy she notices improvement in her sleep quality, and that she wakes up feeling fresher in the morning and more awake/alert during the day. Her boyfriend notices no snore at all. The average residual AHI is 6.4 (was 4.1); and average time in large leak per day is 2 minutes. CPAP Compliance Data - Data Reviewed with Patient Average duration of nightly device use: 8 hr 17 min Compliance rate %: 96.7 Current pressure setting (cmH2O): 5-8 Humidity settin Heated hose settin Average residual AHI: 6.4 Average large leak: 1 min 46 sec Subjective Initial [place] Sleepiness Scale score: 12 (in 2019) Allergies and Home Medications Drug allergies reviewed: Yes Home medication list reviewed: Yes Review of Systems Review of systems same as previous: Yes Physical Exam Height: 5 ft 2 in Impression and Plan IMPRESSION: 1. Obstructive Sleep Apnea-Hypopnea Syndrome, moderate, with the patient continuing to do well on nasal CPAP therapy. She has excellent compliance and significant clinical improvement. The current pressure now appears slightly ineffective but comfortable. Overall, she is very satisfied with treatment and plans to continue with it long-term. I will raise the pressure range a little to bring back the effectiveness. PLAN: 1. Raise autoCPAP lowered to 6 - 10 cmH2O via the modem. 2. Return for follow up in a year or earlier if there is any problem. Visit Type: Telehealth Video Video Type: Doximity Patient Location: Home Location of Provider: Office Patient agrees and consents to this telehealth visit type: Yes Patient agrees to have their insurance billed: Yes Time Spent with Patient (minutes): 15 Provider Statement: I spent 100% of the Telehealth Video Call with the patient w ith greater than 50% spent counseling the patient and coordination of care.
== END 2020-03-24 11:35 | disposition home or self-care (01) ==
LOC: SC 11:34
PROVIDERS: ATTEND Internal Medicine Pulmonary Disease
DX: G47.33 Obstructive sleep apnea (adult) (pediatric) (principal)

== ENCOUNTER 2020-11-07 14:58 | Outpatient (CLI) | payer BC ==
--- NOTE | 2020-11-07 17:15 | XRAY Report ---
PROCEDURE: Hand 2 View LT INDICATIONS: COUGH, LEFT THUMB PAIN TECHNIQUE: 3 views of the hand(s) acquired. COMPARISON: None. FINDINGS: Bones: No fractures or dislocations. No suspicious bony lesions. Remote ulnar styloid tip fracture versus bony ossicle. Polyarticular joint space narrowing with periarticular osteophytosis, moderate in degree. No erosive changes. Soft tissues: No suspicious soft tissue calcifications. IMPRESSION: Diffuse joint degeneration and no erosive changes are seen. Reviewed by: MOIZ Ojeda on 11/07/2020 5:14 PM PDT Approved by: Michael Martínez MD on 11/07/2020 5:14 PM PDT Station ID: [id number]
--- NOTE | 2020-11-07 17:16 | XRAY Report ---
PROCEDURE: Chest 2 View X-Ray INDICATIONS: COUGH AND LEFT THUMB PAIN TECHNIQUE: 2 view(s) of the chest. COMPARISON: None. FINDINGS: Surgical changes and devices: None. Lungs and pleura: No pleural effusions or pneumothorax. Lungs are clear. Mediastinum: Mediastinal contours are normal. Heart size is normal. Bones and chest wall: No suspicious bony abnormalities. Soft tissues appear unremarkable. IMPRESSION: No acute cardiopulmonary disease. Reviewed by: MOIZ Ojeda on 11/07/2020 5:14 PM PDT Approved by: Michael Martínez MD on 11/07/2020 5:14 PM PDT Station ID: [id number]
== END 2020-11-07 14:59 | disposition home or self-care (01) ==
LOC: DI.S 14:58
PROVIDERS: ATTEND Registered Nurse
DX: R05 Cough (principal); M18.12 Unilateral primary osteoarthritis of first carpometacarpal joint, left hand

== ENCOUNTER 2020-11-13 17:40 | Outpatient (CLI) | payer BC | END 2020-11-13 17:41 | disposition home or self-care (01) | LOC: COV 17:40 | PROVIDERS: ATTEND Registered Nurse | DX: Z01.812 Encounter for preprocedural laboratory examination (principal); Z20.822 Contact with and (suspected) exposure to COVID-19 ==

== ENCOUNTER 2020-12-23 15:21 | Emergency (ER) | payer BC ==
[2020-12-23] MEDS ORDERED: IOVERSOL 320 100 ML VIAL IVP ONE ×2 (15:37→17:55)
--- NOTE | 2020-12-23 15:41 | ED Physician Documentation ---
PD HPI FOCAL NEURO - Stated complaint Stated Complaint: SLURRING - Chief complaint Chief Complaint: Neuro - History obtained from History obtained from: Patient, EMS - History of Present Illness Timing - onset: How many minutes ago (25) Timing - duration: Minutes (25) Timing - details: Abrupt onset Severity of deficit: Severe Weakness: No: Face, Arm, Hand, Leg, Foot, Right, Left Numbness: No: Face, Arm, Hand, Leg, Foot, Right, Left Associated symptoms: No: Headache, Nausea / vomiting, Seizure, Syncope, Fall, Head injury, Chest pain, Neck pain, Back pain, Fever Baseline status: positive: A&OX3, ambulatory, indep - Additional information Additional information: 65-year-old female states that she was talking to her boyfriend today when she had difficulty with word finding and difficulty "getting the words out". She felt like she could not string a sentence together. She states that her speech felt slurred as well. She states similar symptoms about 2 years ago when she had a TIA. Does not have any focal weakness, numbness or tingling. No recent trauma. She states the symptoms are currently improving. Patient also states that she felt like there was a line in her vision when this was occurring as well. That has now resolved as well Review of Systems Ten Systems: 10 systems reviewed and negative Constitutional: denies: Fever Ears: denies: Ear pain Nose: denies: Rhinorrhea / runny nose, Congestion Respiratory: reports: Cough (had covid 6 weeks ago, recently treated for bronchitis with steroids and azithromycin) GI: denies: Abdominal Pain, Nausea, Vomiting, Diarrhea : denies: Dysuria Skin: denies: Rash Musculoskeletal: denies: Neck pain, Back pain Neurologic: denies: Headache PD PAST MEDICAL HISTORY - Past Medical History Past Medical History: Yes Cardiovascular: Hypertension, High cholesterol Respiratory: Pneumonia, Sleep apnea, CPAP use Endocrine/Autoimmune: None GI: Colon polyps, Pancreatitis, Diverticulitis, Cholelithiasis : None HEENT: None Psych: None Musculoskeletal: Osteoarthritis Derm: Psoriasis - Past Surgical History Past Surgical History: Yes General: Cholecystectomy, Colonoscopy, EGD 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 - Present Medications Home Medications: Ambulatory Orders Medication Instructions Recorded Confirmed Aspirin Chewable [[place] 162 mg PO DAILY 11/14/19 11/14/19 Aspirin] amLODIPine [Norvasc] 5 mg PO DAILY 11/14/19 11/14/19 - Allergies Allergies/Adverse Reactions: Allergies Allergy/AdvReac Type Severity Reaction Status Date / Time pentazocine lactate * Allergy Intermediate Loss of Verified 12/23/20 15:25 [From [place]win] muscle control/Nausea Sulfa (Sulfonamide Allergy Mild Hives Verified 12/23/20 15:25 Antibiotics) - Social History Does the pt smoke?: No Smoking Status: Never smoker Does the pt drink ETOH?: No Does the pt have substance abuse?: No - Immunizations Immunizations are current?: Yes - POLST Patient has POLST: No PD ED PE NORMAL - Vitals Vital signs reviewed: Yes - General General: Alert and oriented X 3, No acute distress, Well developed/nourished - HEENT HEENT: PERRL, EOMI, Ears normal, Moist mucous membranes, Pharynx benign - Neck Neck: Supple, no meningeal sign - Cardiac Cardiac: RRR, No murmur, Strong equal pulses - Respiratory Respiratory: No respiratory distress, Clear bilaterally - Abdomen Abdomen: Soft, Non tender, Non distended - Derm Derm: Warm and dry - Extremities Extremities: No edema, No calf tenderness / cord - Neuro Neuro: Alert and oriented X 3, gm mobile 2-12 intact, No motor deficit, No sensory deficit, Normal speech, Other (normal gait) - Psych Psych: Normal mood, Normal affect NIHSS - Time Time: 15:32 - Level of Consciousness Level of consciousness: (0) Alert, Keenly responsive LOC Questions: (0) Answers both Q's correct LOC Commands: (0) Performs both correctly - Gaze Best Gaze: (0) Normal - Visual Visual: (0) No loss - Facial Palsy Facial Palsy: (0) Normal, symmetrical movement - Motor Arms (both separate) Motor Arm (right): (0) No drift Motor Arm (left): (0) No drift - Motor Legs (both separate) Motor Leg (right): (0) No drift Motor Leg (left): (0) No drift - Limb Ataxia Limb Ataxia: (0) Absent - Sensory Sensory: (0) Normal - Best Language Best Language: (0) No aphasia - Dysarthria Dysarthria: (0) Normal - Extinction and Inattention (formally neg Extinction and inattention: (0) No abnormality - Total Score/Results Total Score/Result: 0 Results - Vitals Vitals: Vital Signs - 24 hr 12/23/20 12/23/20 12/23/20 15:25 16:10 17:13 Temperature 36.5 C Heart Rate 80 78 77 Respiratory 16 12 14 Rate Blood Pressure 176/87 H 168/87 H 144/85 H O2 Saturation 97 96 97 12/23/20 12/23/20 17:33 18:17 Temperature Heart Rate 76 72 Respiratory 17 14 Rate Blood Pressure 153/87 H 153/80 H O2 Saturation 98 97 Oxygen O2 Source Room air - Labs Labs: Laboratory Tests 12/23/20 12/23/20 12/23/20 15:30 15:40 15:40 WBC 21.0 H RBC 5.38 Hgb 15.7 Hct 48.1 H MCV 89.4 MCH 29.2 MCHC 32.6 RDW 13.0 Plt Count 255 MPV 12.8 H Neut # (Auto) Not Reportable Lymph # (Auto) Not Reportable [place] # (Auto) Not Reportable Eos # (Auto) Not Reportable Baso # (Auto) Not Reportable Absolute Nucleated RBC Not Reportable Total Counted 100 Band Neuts % (Manual) 0 Abnorm Lymph % (Manual) 0 Nucleated RBC % Not Reportable Neutrophils # (Manual) 9.7 H Lymphocytes # (Manual) 8.0 H Monocytes # (Manual) 2.5 H Eosinophils # (Manual) 0.4 Basophils # (Manual) 0.4 H Differential Comment MANUAL DIFFERENTIAL WBC Morphology NORMAL APPEARANCE Platelet Estimate NORMAL (130-450,000) Platelet Morphology NORMAL APPEARANCE RBC Morph Micro Appear NORMAL APPEARANCE PT 10.2 INR 0.9 Sodium Potassium Chloride Carbon Dioxide Anion Gap BUN Creatinine Estimated GFR (MDRD) Glucose Calcium Total Bilirubin AST ALT Alkaline Phosphatase Total Protein Albumin Globulin Albumin/Globulin Ratio Lipase Urine Color YELLOW Urine Clarity CLEAR Urine pH 5.0 Ur Specific [place] 1.020 Urine Protein NEGATIVE Urine Glucose (UA) NEGATIVE Urine Ketones NEGATIVE Urine Occult Blood NEGATIVE Urine Nitrite NEGATIVE Urine Bilirubin NEGATIVE Urine Urobilinogen 0.2 (NORMAL) Ur Leukocyte Esterase NEGATIVE Ur Microscopic Review NOT INDICATED Urine Culture Comments NOT INDICATED 12/23/20 15:40 WBC RBC Hgb Hct MCV MCH MCHC RDW Plt Count MPV Neut # (Auto) Lymph # (Auto) [place] # (Auto) Eos # (Auto) Baso # (Auto) Absolute Nucleated RBC Total Counted Band Neuts % (Manual) Abnorm Lymph % (Manual) Nucleated RBC % Neutrophils # (Manual) Lymphocytes # (Manual) Monocytes # (Manual) Eosinophils # (Manual) Basophils # (Manual) Differential Comment WBC Morphology Platelet Estimate Platelet Morphology RBC Morph Micro Appear PT INR Sodium 138 Potassium 3.8 Chloride 101 Carbon Dioxide 27 Anion Gap 10.0 BUN 24 H Creatinine 0.9 Estimated GFR (MDRD) 63 L Glucose 78 Calcium 9.9 Total Bilirubin 0.6 AST 22 ALT 28 Alkaline Phosphatase 66 Total Protein 7.9 Albumin 4.7 Globulin 3.2 Albumin/Globulin Ratio 1.5 Lipase 32 Urine Color Urine Clarity Urine pH Ur Specific [place] Urine Protein Urine Glucose (UA) Urine Ketones Urine Occult Blood Urine Nitrite Urine Bilirubin Urine Urobilinogen Ur Leukocyte Esterase Ur Microscopic Review Urine Culture Comments - Rads (name of study) head CT Radiology: Final report received, EMP read contemporaneously, See rad report (No acute abnormality) CTA head Radiology: Final report received, EMP read contemporaneously, See rad report (No acute abnormality) CTA neck Radiology: Final report received, EMP read contemporaneously, See rad report (No acute abnormality) cxr Radiology: Final report received, EMP read contemporaneously, See rad report (No acute abnormality) PD MEDICAL DECISION MAKING - ED course Complexity details: reviewed results, re-evaluated patient, considered differential, d/w patient ED course: Patient developed a headache after arrival to the emergency department. The headache was treated with Fioricet. Does have a history of migraines. Sounds like the last time that this occurred she had a migraine headache as well. Possible that this represents a complex migraine rather than a true TIA. We will have her continue her aspirin at home and have her follow-up with her doctor for an MRI and likely neurology consult. Asymptomatic at the time of discharge. No focal neurological deficits. The vision changes, speech difficulty and headache would be consistent with a complex migraine. Patient counseled regarding signs and symptoms for which I believe and urgent re- evaluation would be necessary. Patient with good understanding of and agreement to plan and is comfortable going home at this time This document was made in part using voice recognition software. While efforts are made to proofread this document, sound alike and grammatical errors may occur. Departure - Departure Disposition: 01 Home, Self Care Clinical Impression: Difficulty with speech Migraine Qualifiers: Migraine type: unspecified Status migrainosus presence: without status migrainosus Intractability: not intractable Qualified Code(s): G43.909 - Migraine, unspecified, not intractable, without status migrainosus Condition: Good Instructions: ED Headache Migraine Follow-Up: MILA GARNICA DO [Physician No Access] - Within 1 week Comments: It appears likely that you had a complex migraine headache today, given your neurological symptoms. You should have an MRI next week with your doctor. Your CT angiogram of your head and neck as well as your head CT are normal today. Please follow-up with your doctor for further care. Return if you worsen. Please continue your aspirin at home. Discharge Date/Time: 12/23/20 18:22
[2020-12-23 15:51] LABS: BASOPHILS % (AUTO) 0.4 %; EOSINOPHILS % (AUTO) 0.4 %; HCT - HEMATOCRIT 48.1 % (37.0-47.0); HGB - HEMOGLOBIN 15.7 g/dL (12.0-16.0); LYMPHOCYTES % (AUTO) 40.7 %; MEAN CORPUSCULAR HEMOGLOBIN 29.2 pg (27.0-31.0); MEAN CORPUSCULAR HGB CONC 32.6 g/dL (32.0-36.0); MEAN CORPUSCULAR VOLUME 89.4 fL (81.0-99.0); MEAN PLATELET VOLUME 12.8 fL (7.9-10.8); MONOCYTES % (AUTO) 6.2 %; NEUTROPHILS % (AUTO) 51.9 %; PLT - PLATELET COUNT 255 10^3/uL (130-450); RED BLOOD COUNT 5.38 10^6/uL (4.20-5.40)
[2020-12-23 15:53] LABS: BILIRUBIN,URINE NEGATIVE (NEGATIVE); GLUCOSE, URINE (UA) NEGATIVE (NEGATIVE); KETONES,URINE (UA) NEGATIVE (NEGATIVE); LEUKOCYTE ESTERASE, URINE NEGATIVE (NEGATIVE); NITRITE,URINE NEGATIVE (NEGATIVE); OCCULT BLOOD,URINE NEGATIVE (NEGATIVE); PROTEIN,URINE NEGATIVE (NEGATIVE); UROBILINOGEN,URINE 0.2 (NORMAL) E.U./dL (NORMAL)
[2020-12-23 15:56] LABS: ABNORMAL LYMPHS % (MANUAL) 0 %; BAND NEUTROPHILS % (MANUAL) 0 %
[2020-12-23 15:57] LABS: CLARITY,URINE CLEAR (CLEAR)
[2020-12-23 15:58] LABS: INR 0.9 (0.8-1.2); PT - PROTHROMBIN TIME 10.2 secs (9.9-12.6)
--- NOTE | 2020-12-23 15:58 | CT Report ---
PROCEDURE: Head W/O Stroke Protocol INDICATIONS: Aphasia, confusion, acute stroke suspected TECHNIQUE: Noncontrast 4.5 mm thick angled axial sections acquired from the foramen magnum to the vertex, with c oronal reformats. For radiation dose reduction, the following was used: automated exposure control, adjustment of mA and/or kV according to patient size. COMPARISON: FINDINGS: Image quality: Excellent. CSF spaces: Basal cisterns are patent. No extra-axial fluid collections. Ventricles are normal in size and shape. Brain: No midline shift. No intracranial masses or hemorrhage. [place]-white matter interface is norm al. Skull and face: Calvarium and visualized facial bones are intact, without suspicious lesions. Sinuses: Visualized sinuses and mastoids are clear. IMPRESSION: No acute intracranial abnormality or CT evidence of acute infarct. Findings were discuss ed with Dr. Blanchard at 3:55 PM on 12/23/2020. This study fulfills neurological imaging criteria for inclusion or exclusion of acute stroke therapie s based on available published neurological imaging guidelines. Reviewed by: George Jones MD on 12/23/2020 3:57 PM PDT Approved by: George Jones MD on 12/23/2020 3:57 PM PDT Station ID: [id number]
[2020-12-23 16:02] LABS: ALBUMIN 4.7 g/dL (3.2-5.5); ALBUMIN/GLOBULIN RATIO 1.5 (1.0-2.2); BILIRUBIN,TOTAL 0.6 mg/dL (0.2-1.0); CALCIUM 9.9 mg/dL (8.5-10.3); CREATININE 0.9 mg/dL (0.4-1.0); POTASSIUM 3.8 mmol/L (3.5-5.0); TOTAL PROTEIN 7.9 g/dL (6.7-8.2)
[2020-12-23 16:11] LABS: BASOPHILS # (MANUAL) 0.4 10^3/uL (0-0.1); BASOPHILS % (MANUAL) 2 %; DIFFERENTIAL COMMENT MANUAL DIFFERENTIAL; EOSINOPHILS # (MANUAL) 0.4 10^3/uL (0-0.7); LYMPHOCYTES % (MANUAL) 38 %; MONOCYTES # (MANUAL) 2.5 10^3/uL (0.0-1.0); NEUTROPHILS # (MANUAL) 9.7 10^3/uL (1.5-6.6); PLATELET ESTIMATE, MANUAL NORMAL (130-450,000) (NORMAL); PLATELET MORPHOLOGY NORMAL APPEARANCE (NORMAL); RBC MORPHOLOGY (MULTIPLE) NORMAL APPEARANCE (NORMAL); WBC MORPHOLOGY (MULTIPLE) NORMAL APPEARANCE (NORMAL)
--- NOTE | 2020-12-23 16:23 | CT Report ---
PROCEDURE: ANGIO HEAD W/WO INDICATIONS: aphasia CONTRAST: IV CONTRAST: Optiray 320 ml: 80 PO CONTRAST: *NO PO CONTRAST TECHNIQUE: After the administration of intravenous contrast, 1 mm thick sections acquired through th e [place]. Postcontrast 4.5 mm thick sections then re-acquired from the foramen magnum to t he vertex. Mzuadeb-rlorisjyz-cqklnczgpr (MIP) and/or volume rendering reformats were acquired of the central intracranial vasculature. For radiation dose reduction, the following was used: automated e xposure control, adjustment of mA and/or kV according to patient size. COMPARISON: None FINDINGS: Image quality: Excellent. Anterior circulation: Intracranial internal carotid arteries are normal in size and flow. The flow within the paired anterior cerebral arteries is normal and symmetric. The flow within the middle cer ebral arteries is normal and symmetric. The anterior communicating artery is seen. No aneurysms are seen. Posterior circulation: Visualized portions of the vertebral arteries demonstrate normal caliber, and join to form a normal appearing basilar artery. 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 The P2 segment is supplied by a widely patent posterior communicating artery. Remainder of the distal vascu lature unremarkable. No aneurysms are seen. IMPRESSION: Unremarkable CT angiogram of the brain without large vessel occlusion, aneurysm or vascular malformat ion Reviewed by: Rick Blakely MD on 12/23/2020 3:21 PM MARKIE Approved by: Rick Blakely MD on 12/23/2020 3:21 PM MARKIE Station ID: [id number]
--- NOTE | 2020-12-23 16:27 | CT Report ---
PROCEDURE: ANGIO NECK W INDICATIONS: aphasia CONTRAST: IV CONTRAST: Optiray 320 ml: 80 PO CONTRAST: *NO PO CONTRAST TECHNIQUE: After the administration of intravenous contrast, 1.5 mm axial sections acquired from the aortic arch to the [place] of [place]. Coronal maximum intensity projection (MIP) and/or volume rendering reforma ts were then performed. For radiation dose reduction, the following was used: automated exposure co ntrol, adjustment of mA and/or kV according to patient size. COMPARISON: None. FINDINGS: Image quality: Excellent. Carotid system: The great vessels demonstrate a conventional anatomy as they arise from the aortic a rch. The origins of the common carotid arteries appear patent. The common carotid arteries demonstr ate normal calibers and courses. The bifurcation regions appear normal bilaterally. The internal ca rotid arteries demonstrate normal caliber and course. Posterior circulation: The origins of the vertebral arteries appear patent. The more superior porti ons of the vertebral arteries demonstrate normal course and caliber. They join to form a normal appe aring basilar artery. Soft tissues: Visualized neck soft tissues demonstrate no suspicious abnormalities. The thyroid is normal in size and there are no incidental findings. Bones: No suspicious bony lesions. Visualized cervical spine appears normally aligned. Degenerative disc disease and arthropathy in the cervical spine results in straightening of the normal cervical l ordosis. Mild to moderate central stenosis present at C4-5, C5-6 and C6-7. IMPRESSION: Unremarkable CT angiogram of the neck. No evidence of atherosclerotic plaque, vascular stenosis or an eurysm. Degenerative disc disease results in mild to moderate central stenosis in the lower cervical spine The estimate of stenosis included in the report of the imaging study was calculated using the NASCET method Reviewed by: Rick Blakely MD on 12/23/2020 3:26 PM MARKIE Approved by: Rick Blakely MD on 12/23/2020 3:26 PM AKMARK Station ID: [id number]
[2020-12-23] MEDS ORDERED: BUTALB/ACETAM/CAFF 50/325/40MG TABLET PO STA (17:01)
--- NOTE | 2020-12-23 17:33 | XRAY Report ---
PROCEDURE: Chest 1 View X-Ray INDICATIONS: cough TECHNIQUE: One view of the chest was acquired. COMPARISON: Chest radiographs 11/07/2020 FINDINGS: Surgical changes and devices: None. Lungs and pleura: No pleural effusions or pneumothorax. Lungs are clear. Mediastinum: Mediastinal contours appear normal. Heart size is normal. Bones and chest wall: No suspicious bony lesions. Overlying soft tissues appear unremarkable. Degen erative changes are seen in the included spine. IMPRESSION: No acute cardiopulmonary abnormality. Reviewed by: Tee Stephens MD on 12/23/2020 5:31 PM PDT Approved by: Tee Stephens MD on 12/23/2020 5:31 PM PDT Station ID: [id number]
[2020-12-23 18:18] VITALS: BP 153/80
== END 2020-12-23 18:22 | disposition home or self-care (01) ==
LOC: ED 15:21
DX: G43.909 Migraine, unspecified, not intractable, without status migrainosus (principal); R47.9 Unspecified speech disturbances; I10 Essential (primary) hypertension; Z86.16 Personal history of COVID-19; Z86.73 Personal history of transient ischemic attack (TIA), and cerebral infarction without residual deficits
CPT/HCPCS: 36415; 70450; 70496; 70498; 71045; 80053; 81003; 83690; 85025; 85610; 93005; 99284; A9270; Q9967; 81001; 87086

== ENCOUNTER 2021-01-01 17:25 | Outpatient (CLI) | payer BC | END 2021-01-01 17:26 | disposition home or self-care (01) | LOC: RT 17:25 | PROVIDERS: ATTEND Registered Nurse | DX: R05.9 Cough, unspecified (principal) | CPT/HCPCS: 94010 ==

== ENCOUNTER 2021-02-23 10:36 | Outpatient (CLI) | payer BC ==
[2021-02-23 11:35] VITALS: BP 126/73
--- NOTE | 2021-02-23 11:35 | SLEEP CARE CONSULTATION ---
Information from patient questionnaire entered by Pratik Easton MA. I have reviewed and concur with the information entered by Pratik Easton MA. This document represents the service I personally performed and the decisions made by me, Karyna Carney MD, [facility]. History of Present Illness Service Date and Time: 02/23/2021 1036 Previous diagnosis: Moderate, Obstructive Sleep Apnea-Hypopnea Syndrome AHI: 21 (in 2019) Reason for follow up: other (10 MONTH FOLLOW UP) Equipment type: CPAP Equipment obtained from: [employer] Mask style: Nasal Prior sleep studies: Yes Year and Where: 2019 - [facility] Sleep Type of Sleep Study: Polysomnography HPI additional information: Ms. Mcmanus returns today for annual follow up of nasal CPAP therapy. She was diagnosed to have moderate obstructive sleep apnea-hypopnea syndrome. The patient gets her supplies from [employer]. She wears a nasal mask. She continues to use the Respironics DreamStation2 autoCPAP nightly and all through the night (she received the device just a month ago to replace the DreamStation 1). The compliance report shows usage in 27 nights out of the past 30 nights, averaging 8.3 hours a night. The > 4 hour compliance rate for the past 30 days is 86.7%. She thinks that the pressure of 6 - 10 cmH2O is comfortable (raised from 5 - 8 cmH2O in March). On the CPAP therapy she notices improvement in her sleep quality, and that she wakes up feeling fresher in the morning and more awake/alert during the day. [place] Sleepiness Scale score is 9. Her boyfriend notices no snore at all. The average residual AHI is 4.3 (was 6.4); and average time in large leak per day is 2 minutes. Sleep Study - Results Type of Sleep Study: Polysomnography Prior sleep studies: Yes Year and Where: 2019 [facility] Sleep CPAP Compliance Data - Data Reviewed with Patient Average duration of nightly device use: 2 HOURS 10 MINUTES Compliance rate %: 25.6 Current pressure setting (cmH2O): 6-10 Humidity settin Heated hose settin Average residual AHI: 5.1 Average large leak: 2 MINUTE 31 SECONDS Subjective Missed days of use due to: reports: other (unit recall) On therapy, patient: reports: other (nose cusion) Initial [place] Sleepiness Scale score: 12 (in 2019) Current [place] Sleepiness Scale score: 9 (in 2020) Allergies and Home Medications Known drug allergies: Yes (Talwin, Sulfa) Drug allergies reviewed: Yes Home medication list reviewed: Yes Allergy and home medication list: new medication - Co-Q 10 VERENA Bolden Review of Systems Review of systems same as previous: Yes Physical Exam Vital signs obtained and entered by: Julienne EASTON CMA AADELVIN Blood Pressure: 126/73 (left) Cuff size: wrist Heart Rate: 68 O2 Saturation: 96 (with mask) Height: 5 ft 2 in Weight: 184 lb Body Mass Index: 33.6 BMI Classification: Obese Impression and Plan IMPRESSION: 1. Obstructive Sleep Apnea-Hypopnea Syndrome, moderate, with the patient continuing to do well on nasal CPAP therapy. She has excellent compliance and significant clinical improvement. The current pressure setting appears effective and comfortable. Overall, she is very satisfied with treatment and plans to continue with it long-term. No adjustment is necessary today. PLAN: 1. Leave the autoCPAP at 6 - 10 cmH2O. 2. Try a ResMed N30i mask 3. Return for follow up in a year or earlier if there is any problem. Counseling Topics: Weight control Follow up with Sleep Care in: 1 year Visit Type: In Office Time Spent with Patient (minutes): 15 Provider Statement: I spent 100% of the Face to Face Visit with the patient with greater than 50% spent counseling the patient and coordination of care.
== END 2021-02-23 10:37 | disposition home or self-care (01) ==
LOC: SC 10:36
PROVIDERS: ATTEND Internal Medicine Pulmonary Disease
DX: G47.33 Obstructive sleep apnea (adult) (pediatric) (principal); E66.9 Obesity, unspecified; Z68.33 Body mass index [BMI] 33.0-33.9, adult
CPT/HCPCS: 99212

== ENCOUNTER 2021-05-11 11:01 | Outpatient (CLI) | payer MEDICARE ==
--- NOTE | 2021-05-11 13:09 | SLEEP CARE CONSULTATION ---
Information from patient questionnaire entered by Pratik Waldron MA. I have reviewed and concur with the information entered by Pratik Waldron MA. This document represents the service I personally performed and the decisions made by me, Karyna Carney MD, [facility]. History of Present Illness Service Date and Time: 05/11/2021 1101 Previous diagnosis: Moderate, Obstructive Sleep Apnea-Hypopnea Syndrome AHI: 21 (in 2019) Reason for follow up: other (MEDICARE COMPLIANCE,) Equipment type: CPAP Equipment obtained from: [employer] Mask style: Nasal [facility] Yes [facility] Type of Sleep Study: Polysomnography HPI additional information: Ms. Mcmanus returns today for annual follow up of nasal CPAP therapy. She was diagnosed to have moderate obstructive sleep apnea-hypopnea syndrome. The patient gets her supplies from [employer]. She wears a nasal mask. She continues to use the Respironics DreamStation2 autoCPAP nightly and all through the night (she received the device 3 months ago to replace the DreamStation 1). The compliance report shows usage in 25 nights out of the past 30 nights, averaging 8.5 hours a night. The > 4-hour compliance rate for the past 30 days is 83.3%. She thinks that the pressure of 6 - 10 cmH2O is comfortable (raised from 5 - 8 cmH2O in March). On the CPAP therapy she notices improvement in her sleep quality, and that she wakes up feeling fresher in the morning and more awake/alert during the day. [place] Sleepiness Scale. Her boyfriend notices occasional snore. The average residual AHI is 3.9 (was 6.4); and average time in large leak per day is 1.2 minutes. Sleep Study - Results Type of Sleep Study: Polysomnography Prior sleep studies: Yes [facility] Compliance Data - Data Reviewed with Patient Average duration of nightly device use: 8 HOURS 25 MINUTES Compliance rate %: 83.3 Current pressure setting (cmH2O): 6-10 Humidity settin Heated hose settin Average residual AHI: 3.8 Average large leak: 1 MINUTE 38 SECONDS Subjective Initial [place] Sleepiness Scale score: 12 (in 2019) Allergies and Home Medications Drug allergies reviewed: Yes Home medication list reviewed: Yes Allergy and home medication list: Allergies pentazocine lactate * [From Talwin] Allergy (Intermediate, Verified 12/23/20 15:25) Loss of muscle control/Nausea Sulfa (Sulfonamide Antibiotics) Allergy (Mild, Verified 12/23/20 15:25) Hives Review of Systems Review of systems same as previous: Yes Physical Exam Vital signs obtained and entered by: Julienne WALDRON CMA AADELVIN Height: 5 ft 2 in Weight change since last visit: TELEMED APPOINTMENT Impression and Plan IMPRESSION: 1. Obstructive Sleep Apnea-Hypopnea Syndrome, moderate, with the patient continuing to do well on nasal CPAP therapy. She has good compliance and significant clinical improvement. The current pressure setting appears effective and comfortable. Overall, she is very satisfied with treatment and plans to continue with it long-term. No adjustment is necessary today. The patient would like to switch to [facility]. PLAN: 1. Leave the autoCPAP at 6 - 10 cmH2O. 2. Prescription made for supplies and sent to [facility]. 3. Return for follow up in a year or earlier if there is any problem. Prescriptions: Device supplies Follow up with Sleep Care in: 1 year Visit Type: Telehealth Video Video Type: VSee Patient Location: Home Location of Provider: Office Patient agrees and consents to this telehealth visit type: Yes Patient agrees to have their insurance billed: Yes Time Spent with Patient (minutes): 15 Provider Statement: I spent 100% of the Telehealth Video Call with the patient with greater than 50% spent counseling the patient and coordination of care.
== END 2021-05-11 11:02 | disposition home or self-care (01) ==
LOC: SC 11:01
PROVIDERS: ATTEND Internal Medicine Pulmonary Disease
DX: G47.33 Obstructive sleep apnea (adult) (pediatric) (principal)
CPT/HCPCS: 99212; G0463

== ENCOUNTER 2022-05-10 10:43 | Outpatient (CLI) | payer MEDICARE ==
[2022-05-10 12:27] VITALS: BP 124/76
--- NOTE | 2022-05-10 12:27 | SLEEP CARE CONSULTATION ---
Information from patient questionnaire entered by Rose Mary Hogan. I have reviewed and concur with the information entered by Rose Mary Hogan. This document represents the service I personally performed and the decisions made by me, Karyna Carney MD, [facility]. History of Present Illness Service Date and Time: 05/10/2022 1043 Previous diagnosis: Moderate, Obstructive Sleep Apnea-Hypopnea Syndrome AHI: 21 (in 2019) Reason for follow up: annual (LAST SEEN 02/2021) Equipment type: CPAP (MOLINA) Equipment obtained from: [employer] Mask style: Nasal Prior sleep studies: Yes Year and Where: 2019 - [facility] Sleep Type of Sleep Study: Polysomnography HPI additional information: Ms. Mcmanus returns today for annual follow up of nasal CPAP therapy. She was diagnosed to have moderate obstructive sleep apnea-hypopnea syndrome. The patient gets her supplies from [employer]. She wears a Respironics DreamWear nasal cushion mask. She complains that her durable medical supplier keeps send her the ResMed N30i mask. She continues to use the Respironics DreamStation2 autoCPAP nightly and all through the night (she received the device 3 months ago to replace the DreamStation 1). The compliance report shows usage in 174 nights out of the past 180 nights, averaging 7.8 hours a night. The > 4-hour compliance rate for the past 180 days is 96%. She thinks that the pressure of 6 - 10 cmH2O is comfortable (raised from 5 - 8 cmH2O last year). On the CPAP therapy she notices improvement in her sleep quality, and that she wakes up feeling fresher in the morning and more awake/alert during the day. [place] Sleepiness Scale is 4. Her boyfriend notices occasional snore. The average residual AHI is 4.1 (was 6.4); and average time in large leak per day is 40 seconds. The 90th percentile pressure is 8.6 cmH2O. Sleep Study - Results Type of Sleep Study: Polysomnography Prior sleep studies: Yes Year and Where: 2019 - [facility] Sleep Subjective Initial [place] Sleepiness Scale score: 12 (in 2019) Current [place] Sleepiness Scale score: 4 (05/10/22) Allergies and Home Medications Drug allergies reviewed: Yes Home medication list reviewed: Yes Allergy and home medication list: Allergies pentazocine lactate * [From [employer]] Allergy (Intermediate, Verified 12/23/20 15:25) Loss of muscle control/Nausea Sulfa (Sulfonamide Antibiotics) Allergy (Mild, Verified 12/23/20 15:25) Hives Review of Systems Review of systems same as previous: Yes Physical Exam Vital signs obtained and entered by: ROSE MARY Ibarra MA Blood Pressure: 124/76 (LEFT ARM) Cuff size: regular Heart Rate: 68 O2 Saturation: 96 Height: 5 ft 2 in Weight: 194 lb Body Mass Index: 35.4 BMI Classification: Obese Impression and Plan IMPRESSION: 1. Obstructive Sleep Apnea-Hypopnea Syndrome, moderate, with the patient continuing to do well on nasal CPAP therapy. She has good compliance and significant clinical improvement. The current pressure setting appears effective and comfortable. Overall, she is very satisfied with treatment and plans to continue with it long-term. No adjustment is necessary today. The patient would like to try ResMed N30 mask so that there is no headgear on the top of her head to aggravate hair loss. PLAN: 1. Leave the autoCPAP at 6 - 10 cmH2O. 2. Prescription made for supplies and sent to [facility]. I specify Respironics DreamWear nasal cushion mask and ResMed N30 mask. 3. Return for follow up in a year or earlier if there is any problem. Prescriptions: Device supplies Follow up with Sleep Care in: 1 year Visit Type: In Office Time Spent with Patient (minutes): 15 Provider Statement: I spent 100% of the Face to Face Visit with the patient with greater than 50% spent counseling the patient and coordination of care.
== END 2022-05-10 10:44 | disposition home or self-care (01) ==
LOC: SC 10:43
PROVIDERS: ATTEND Internal Medicine Pulmonary Disease
DX: G47.33 Obstructive sleep apnea (adult) (pediatric) (principal); E66.9 Obesity, unspecified; Z68.35 Body mass index [BMI] 35.0-35.9, adult
CPT/HCPCS: 99212; G0463

== ENCOUNTER 2022-05-20 08:00 | Outpatient (CLI) | payer MEDICARE ==
--- NOTE | 2022-05-20 18:16 | XRAY Report ---
PROCEDURE: Hand 3 View LT INDICATIONS: LEFT HAND PAIN TECHNIQUE: 3 views of the hand(s) acquired. COMPARISON: None FINDINGS: Bones: No fractures or dislocations. No suspicious bony lesions. Soft tissues: No suspicious soft tissue calcifications. IMPRESSION: No evidence of acute bony abnormality of the left hand. Reviewed by: Tigre Ramos MD on 05/20/2022 6:15 PM [facility] Approved by: Tigre Ramos MD on 05/20/2022 6:15 PM [facility] Station ID: [id number]
== END 2022-05-20 23:59 | disposition home or self-care (01) ==
LOC: DI.S 08:00
PROVIDERS: ATTEND Registered Nurse
DX: M79.645 Pain in left finger(s) (principal)

== ENCOUNTER 2023-05-09 11:04 | Outpatient (CLI) | payer MEDICARE ==
--- NOTE | 2023-05-09 12:32 | SLEEP CARE CONSULTATION ---
Information from patient questionnaire entered by Rose Mary Hogan. I have reviewed and concur with the information entered by Rose Mary Hogan. This document represents the service I personally performed and the decisions made by me, Karyna Carney MD, [facility]. History of Present Illness Service Date and Time: 05/09/2023 1104 Previous diagnosis: Moderate, Obstructive Sleep Apnea-Hypopnea Syndrome AHI: 21 (in 2019) Reason for follow up: annual (LAST SEEN 04/2022) Equipment type: CPAP (MOLINA) Equipment obtained from: [employer] Mask style: Nasal [facility]: Yes [facility] Type of Sleep Study: Polysomnography HPI additional information: Ms. Mcmanus returns today for annual follow up of nasal CPAP therapy. She was diagnosed to have moderate obstructive sleep apnea-hypopnea syndrome. The patient gets her supplies from [employer]. She wears a Respironics DreamWear nasal cushion mask. She complains of having to wear a chinstrap to hold the mask in place and not being comfortable lying on her side. She continues to use the Respironics DreamStation2 autoCPAP nightly and all through the night (she received the device 2 years ago to replace the DreamStation 1). The compliance report shows usage in 365 nights out of the past 365 nights, averaging 7.2 hours a night. The > 4-hour compliance rate for the past 365 days is 94.5%. She thinks that the pressure of 6 - 10 cmH2O is comfortable (raised from 5 - 8 cmH2O 2 years ago). On the CPAP therapy she notices improvement in her sleep quality, and that she wakes up feeling fresher in the morning and more awake/alert during the day. [place] Sleepiness Scale is 4. Her boyfriend notices occasional snore. The average residual AHI is 3.3 (was 6.4); and average time in large le ak per day is 32 seconds. The 90th percentile pressure is 9.4 cmH2O. Sleep Study - Results Type of Sleep Study: Polysomnography Prior sleep studies: Yes Year and Where: 2019 [facility] Sleep CPAP Compliance Data - Data Reviewed with Patient Average duration of nightly device use: 7HRS 14MINS 59SECS Compliance rate %: 94.5 (05/05/22-05/04/23) Current pressure setting (cmH2O): 6-10 Average residual AHI: 3.3 Subjective Initial [place] Sleepiness Scale score: 12 (in 2019) Current [place] Sleepiness Scale score: 1 (05/09/23) Allergies and Home Medications Drug allergies reviewed: Yes Home medication list reviewed: Yes Allergy and home medication list: Allergies pentazocine lactate * [From Talwin] Allergy (Intermediate, Verified 05/05/23 15:21) Loss of muscle control/Nausea Sulfa (Sulfonamide Antibiotics) Allergy (Mild, Verified 05/05/23 15:21) Hives Review of Systems Review of systems same as previous: Yes (NO CHANGE) Physical Exam Vital signs obtained and entered by: ROSE MARY Ibarra MA Blood Pressure: 121/71 (RIGHT ARM) Cuff size: regular Heart Rate: 69 O2 Saturation: 96 Height: 5 ft 2 in Weight: 205 lb 9.6 oz Body Mass Index: 37.5 BMI Classification: Obese Impression and Plan IMPRESSION: 1. Obstructive Sleep Apnea-Hypopnea Syndrome, moderate, with the patient continuing to do well on nasal CPAP therapy. She has good compliance and significant clinical improvement. The current pressure setting appears effective and comfortable. Overall, she is very satisfied with the treatment and plans to continue with it long-term. No adjustment is necessary today. I recommend she try a ResMed N30 mask. PLAN: 1. Leave the autoCPAP at 6 - 10 cmH2O. 2. Try ResMed N30 mask 3. Return for follow a up in a year or earlier if there is any problem. She will be eligible for a new machine next August. Counseling Topics: Weight control Follow up with Sleep Care in: 1 year Visit Type: In Office Time Spent with Patient (minutes): 15 Provider Statement: I spent 100% of the Face to Face Visit with the patient with greater than 50% spent counseling the patient and coordination of care.
[2023-05-09 14:19] VITALS: BP 121/71; O2SAT 96
== END 2023-05-09 11:05 | disposition home or self-care (01) ==
LOC: SC 11:04
PROVIDERS: ATTEND Internal Medicine Pulmonary Disease
DX: G47.33 Obstructive sleep apnea (adult) (pediatric) (principal); E66.9 Obesity, unspecified; Z68.37 Body mass index [BMI] 37.0-37.9, adult
CPT/HCPCS: 99212; G0463